=== PATIENT | male | born 1940 | race African-American/Black ===

== ENCOUNTER 2018-04-26 09:53 | Inpatient (IN) | payer MEDICARE, MEDICAID ==
[~2018-04-26] VITALS: Ht 170.2 cm; Wt 69.9 kg
[2018-04-26] MEDS ORDERED: ASPIRIN 325MG EC TABLET PO ONE (10:30)
[2018-04-26 10:57] LABS: BASOPHILS % 0.5 % (0.0-2.0); EOSINOPHILS % 2.4 % (0.0-5.0); HEMATOCRIT. 41.5 % (42.0-52.0); HEMOGLOBIN. 13.9 g/dL (14.0-18.0); LYMPHOCYTES % 15.7 % (20.0-50.0); MEAN CORPUSCULAR HEMOGLOBIN 32.1 pg (28.0-32.0); MEAN CORPUSCULAR VOLUME 95.8 fL (80.0-94.0); MEAN PLATELET VOLUME 7.6 fl (7.4-10.4); MONOCYTES % 5.8 % (2.0-8.0); NEUTROPHILS % 75.6 % (40.0-76.0); PLATELET 213 x1000/uL (130-400); RED BLOOD CELL COUNT 4.33 mill/uL (4.7-6.1); RED CELL DISTRIBUTION WIDTH 13.6 % (11.6-14.6)
[2018-04-26 11:06] LABS: CHLORIDE 109 mEq/L (98-107)
[2018-04-26] MEDS: NITROGLYCERIN 0.4MG TABLET SL SL PRN ×3 (12:41→15:49)
[2018-04-26 13:20] VITALS: BP_SYST 149; BP_DIAS 90; BP_DIAS 96
[2018-04-26] MEDS ORDERED: ISOSORBIDE DINITRATE 20MG TABLET PO SCH (17:00)
[2018-04-26] MEDS: NITROGLYCERIN OINT 1GM/INCH UDPKT TD SCH ×2 (17:00→21:13)
[2018-04-26] MEDS ORDERED: DORZ10DR8 EACHEYE (17:17)
[2018-04-26] MEDS ORDERED: TIOT18CA3 IH (17:17)
[2018-04-26] MEDS ORDERED: NITR100C PO (17:17)
[2018-04-26] MEDS ORDERED: IBUP-2030 PO (17:17)
[2018-04-26] MEDS ORDERED: FLUT1DIS6 INH (17:17)
[2018-04-26] MEDS ORDERED: BRIM5DRO6 EACHEYE (17:17)
[2018-04-26] MEDS ORDERED: METO-385 PO (17:17)
[2018-04-26] MEDS ORDERED: LATA2.5D2 EACHEYE (17:17)
[2018-04-26] MEDS ORDERED: NIFE60TA64 PO (17:17)
[2018-04-26] MEDS ORDERED: ATOR20TA65 PO (17:17)
[2018-04-26 20:00] VITALS: BP 117/85
[2018-04-26] MEDS ORDERED: LATANOPROST 0.005% OPHTH DROPS 2.5ML BOTHEYE SCH (21:00)
[2018-04-26 21:10] LABS: CREATINE KINASE MB FRACTION 3.8 ng/mL (0.5-3.6)
[2018-04-26] MEDS: DORZOLAMIDE 2% OPHTH 10 ML BOTTLE BOTHEYE SCH (21:13)
[2018-04-26] MEDS ORDERED: NITROGLYCERIN OINT 1GM/INCH UDPKT TD SCH (22:00)
[2018-04-27] VITALS: BP 125/79
[2018-04-27 04:00] VITALS: BP 126/61
[2018-04-27] MEDS ORDERED: ACETAMINOPHEN 325MG TABLET PO PRN (05:15)
[2018-04-27] MEDS: DORZOLAMIDE 2% OPHTH 10 ML BOTTLE BOTHEYE SCH (05:23)
[2018-04-27] MEDS: NITROGLYCERIN OINT 1GM/INCH UDPKT TD SCH (05:23)
[2018-04-27 08:00] VITALS: BP 125/71
[2018-04-27] MEDS ORDERED: FLUTICASONE/VILANTEROL 200-25 BLST.W.DEV ORI SCH (09:00)
[2018-04-27] MEDS ORDERED: NIFEDIPINE XL 60MG TAB PO SCH (09:00)
== END 2018-04-27 09:23 | disposition expired ==
LOC: ER 10:25 → 8WST 11:46 → EDBEDREQ 11:48 → ENRESERV 11:58
PROVIDERS: ADMIT Internal Medicine Critical Care Medicine; ATTEND Internal Medicine Critical Care Medicine
PROC: 5A12012 Performance of Cardiac Output, Single, Manual (ICD-10-PCS; principal; 2018-04-27)
PROC: 0BH17EZ Insertion of Endotracheal Airway into Trachea, Via Natural or Artificial Opening (ICD-10-PCS; 2018-04-27)
DX: I21.4 Non-ST elevation (NSTEMI) myocardial infarction (principal); E78.5 Hyperlipidemia, unspecified; H40.9 Unspecified glaucoma; I12.9 Hypertensive chronic kidney disease with stage 1 through stage 4 chronic kidney disease, or unspecified chronic kidney disease; E78.00 Pure hypercholesterolemia, unspecified; I46.9 Cardiac arrest, cause unspecified; J44.9 Chronic obstructive pulmonary disease, unspecified; M10.9 Gout, unspecified; Z96.1 Presence of intraocular lens; N18.3 Chronic kidney disease, stage 3 (moderate); Z87.891 Personal history of nicotine dependence; Z98.41 Cataract extraction status, right eye; Z98.42 Cataract extraction status, left eye; Z79.899 Other long term (current) drug therapy; I25.10 Atherosclerotic heart disease of native coronary artery without angina pectoris
CPT/HCPCS: 36415; 71045; 80048; 80061; 82553; 82962; 83880; 84484; 84550; 93005; 96374; 99285